=== PATIENT | female | born 1960 | race Hispanic/Latino ===

== ENCOUNTER 2020-11-19 09:51 | Inpatient (IN) | payer SELFPAY ==
[2020-11-19] MEDS ORDERED: ACETAMINOPHEN 500 MG TAB PO STA (10:10)
--- NOTE | 2020-11-19 10:11 | Event Note ---
ED Screening Note Date of service: 11/19/20 Time: 10:10 ED Screening Note: Patient complains of chest pain, shortness of breath, body aches and chills and feeling bad x3 days Recently returned from [place] few days ago, states 6 to 7-hour flight Denies swelling in her legs Mild tachycardia noted with a fever of 103 This initial assessment/diagnostic orders/clinical plan/treatment(s) is/are subject to change based on patients health status, clinical progression and re- assessment by fellow clinical providers in the ED. Further treatment and workup at subsequent clinical providers discretion. Patient/guardian urged not to elope from the ED as their condition may be serious if not clinically assessed and managed. Initial orders include: Tylenol Labs Chest x-ray
--- NOTE | 2020-11-19 10:42 | XRay Report ---
CHEST 2 VIEWS INDICATION / CLINICAL INFORMATION: chest pain, SOB, fever. COMPARISON: None available. FINDINGS: SUPPORT DEVICES: None. HEART / MEDIASTINUM: No significant abnormality. LUNGS / PLEURA: No focal consolidation pleural effusion. 4 mm nodule in the right midlung may represe nt granuloma No pneumothorax. ADDITIONAL FINDINGS: No significant additional findings. IMPRESSION: 1. Possible 4 mm nodule/granuloma right midlung. No priors available for comparison. A follow-up ches t x-ray could be performed. Signer Name: Shawn Doherty MD Signed: 11/19/2020 10:37 AM Workstation Name: [id number]
[2020-11-19 11:59] LABS: Basophils % (Auto) 0.3 % (0.0-1.8); Eosinophils % (Auto) 0.1 % (0.0-4.3); Hematocrit 35.2 % (30.3-42.9); Hemoglobin 12.1 gm/dl (10.1-14.3); Lymphocytes # (Auto) 1.3 K/mm3 (1.2-5.4); Lymphocytes % (Auto) 8.8 % (13.4-35.0); Mean Corpuscular HGB Conc 34 % (30-34); Mean Corpuscular Volume 90 fl (79-97); Monocytes # (Auto) 1.4 K/mm3 (0.0-0.8); Monocytes % (Auto) 9.6 % (0.0-7.3); Platelet Count 350 K/mm3 (140-440); Red Blood Count 3.91 M/mm3 (3.65-5.03); Red Cell Distribution Width 14.2 % (13.2-15.2)
[2020-11-19 12:22] LABS: Alanine Aminotransferase 30 units/L (7-56); BUN/Creatinine Ratio 11; Blood Urea Nitrogen 9 mg/dL (7-17); Calcium 8.5 mg/dL (8.4-10.2); Hemolysis Index 12
[2020-11-19] MEDS ORDERED: MORPHINE 4 MG/1 ML INJ IV ONE (12:25)
[2020-11-19] MEDS ORDERED: cefTRIAXone/NS 2 GM/100 ML 2 GM/100 ML BAG IV ONE (12:25)
[2020-11-19] MEDS ORDERED: SODIUM CHLORIDE 0.9% 100 ML IVPB IV STA (12:27)
[2020-11-19] MEDS ORDERED: VANCOMYCIN 1,250 MG in SODIUM CHLORIDE 0.9% 250ML 250 ML IV ONE (13:25)
--- NOTE | 2020-11-19 14:31 | Emergency Department Report ---
ED General Adult HPI - General Chief complaint: Fever Stated complaint: BODY PAIN/FEET/HAND NUMBNESS PUI?: Yes Time Seen by Provider: 11/19/20 10:08 Source: patient, RN notes reviewed Mode of arrival: Ambulatory Limitations: No Limitations - History of Present Illness Initial comments: During the entire history and physical examination, I had on complete personal protective equipment. The patient is a 60-year-old female. The patient was evaluated in the emergency department for symptoms described in the history of present illness. He/she was evaluated in the context of the global COVID-19 pandemic, which necessitated consideration that the patient might be at risk for infection with the virus that causes COVID-19. In stitutional protocols and algorithms that pertain to the evaluation of patients at risk for COVID-19 are in a state of rapid change based on information released by regulatory bodies including the CDC and federal and state organizations. These policies and algorithms were followed during the patient's care in the emergency department. Please note that these policies, procedures and recommendations changed on a rapid basis. The patient has a history of methamphetamine use, and reports that she smokes it. She states that she does not inject IV drugs. The patient presents to the ER today with a complaint of nontraumatic occipital and midline cervical neck pain, numbness in her fingertips, and toes, abdominal pain, in the right lower quadrant, shortness of breath, fevers, chills. Denies loss of taste and smell. Denies dysuria. Denies severe headache, and sore throat. Denies neck stiffness. Denies focal extremity weakness. She told the physician urology physician assistant that screened her that she was having shortness of breath, and a recent 6-hour flight. -: Gradual, days(s) Location: neck, abdomen, left, right, upper extremity, lower extremity Radiation: extremity Severity scale (0 -10): 10 Quality: aching Consistency: constant Improves with: rest Worsens with: movement - Related Data Allergies Allergy/AdvReac Type Severity Reaction Status Date / Time codeine Allergy Unknown Verified 11/19/20 10:05 ED Review of Systems ROS: Stated complaint: BODY PAIN/FEET/HAND NUMBNESS Other details as noted in HPI Constitutional: fever, malaise, weakness Eyes: denies: eye discharge ENT: denies: epistaxis Respiratory: shortness of breath. denies: cough Cardiovascular: denies: chest pain Gastrointestinal: abdominal pain Genitourinary: denies: dysuria Musculoskeletal: arthralgia, myalgia Neurological: weakness, numbness, paresthesias Psychiatric: anxiety ED Past Medical Hx - Past Medical History Previous Medical History?: No - Surgical History Past Surgical History?: No - Social History Smoking Status: Unknown if ever smoked ED Physical Exam - General Limitations: No Limitations General appearance: alert, in no apparent distress - Head Head exam: Present: atraumatic, normocephalic - Eye Eye exam: Present: normal appearance, EOMI. Absent: nystagmus - ENT ENT exam: Present: normal orophraynx, normal external ear exam, other (The patient is edentulous) - Neck Neck exam: Present: normal inspection, full ROM. Absent: tenderness, meningismus - Respiratory Respiratory exam: Present: other (Pulmonary auscultation not performed secondary to lack of disposable stethoscope). Absent: stridor - Cardiovascular Cardiovascular Exam: Present: normal rhythm, tachycardia (Tachycardia noted on traffic monitor specialist), other (Tachycardia noted on traffic monitor specialist) - GI/Abdominal GI/Abdominal exam: Present: soft, tenderness, guarding, normal bowel sounds. Absent: distended, rigid, pulsatile mass - Extremities Exam Extremities exam: Present: normal inspection, full ROM, other (2+ pulses noted in the bilateral upper and lower extremities. There is no palpable cord. negative Homans sign. Muscular compartments are soft. The pelvis is stable.). Absent: pedal edema, calf tenderness - Back Exam Back exam: Present: normal inspection, paraspinal tenderness. Absent: t enderness, CVA tenderness (R), CVA tenderness (L) - Neurological Exam Neurological exam: Present: alert, other (No facial droop. Tongue midline. Extraocular movements intact bilaterally. Facial sensation intact to light touch in V1, V2, V3 distribution bilaterally. 5 and a 5 strength in 4 extremities. Sensation intact to light touch in 4 extremities.) - Psychiatric Psychiatric exam: Present: anxious - Skin Skin exam: Present: warm, dry, intact, normal color. Absent: rash ED Course Vital Signs 11/19/20 11/19/20 11/19/20 10:08 14:29 14:30 Temperature 103.0 F H Pulse Rate 105 H 71 73 Respiratory 24 16 19 Rate Blood Pressure 149/72 Blood Pressure [Left] O2 Sat by Pulse 99 Oximetry 11/19/20 11/19/20 11/19/20 14:33 14:46 15:00 Temperature 97.9 F Pulse Rate 69 71 68 Respiratory 18 17 14 Rate Blood Pressure 102/56 111/51 Blood Pressure 105/52 [Left] O2 Sat by Pulse 95 80 L 100 Oximetry - Reevaluation(s) Reevaluation #1: 11/19/20 14:30 Differential diagnosis, including but not limited to: Bacteremia, viremia, pneumonia, pulmonary embolism, appendicitis, infected renal stone, renal abscess, cervical epidural abscess COVID-19 Assessment and plan: 60-year-old female meeting sepsis/SIRS criteria, by merit of leukocytosis, tachycardia, and fever. She complains of neck pain, with tingling in her fingertips and toes, without midline spinal step-offs or tenderness, without acute neurologic deficits, also with a complaint of right lower quadrant pain, and articulated to the physician urology physician assistant that screened her that she had chest pain and shortness of breath, in the context of a recent trip to [place]. The patient is also a methamphetamine user. Sepsis protocol initiated. Given methamphetamine use, presence of fever and tachycardia, Neck pain, neurologic symptoms, MRI cervical spine is obtained to exclude epidural abscess. Given fever, tachycardia, right lower quadrant pain, complaint of chest pain and shortness of breath, CT scan chest, abdomen pelvis is obtained. Patient is medicated empirically with vancomycin, and ceftriaxone. She is placed on isolation precautions, reassess after imaging has resulted. Have discussed this plan of care with the patient. She is amenable to the afo rementioned. We will likely admit this patient. 11/19/20 14:31 11/19/20 14:32 Reevaluation #2: 11/19/20 15:16 MRI cervical spine negative for acute surgical findings. CT scan neck, chest, abdomen, pelvis negative for acute findings that would require emergent surgical intervention, however, CT scan abdomen pelvis demonstrates right-sided pyelonephritis, corroborating with patient's urinalysis. CT scan chest has shown coronary artery calcifications, as well as a granuloma, but otherwise no acute findings. Patient is moving 4 extremities and remains neurologically intact. Patient meets criteria for admission hospitalization secondary to sepsis, secondary to pyelonephritis. Hospital physician, Dr. Monet, to admit for the aforementioned. ED Medical Decision Making - Lab Data Result diagrams: 11/19/20 11:14 11/19/20 11:14 Vital Signs 11/19/20 10:08 Temperature 103.0 F H Pulse Rate 105 H Respiratory 24 Rate Blood Pressure 149/72 O2 Sat by Pulse 99 Oximetry Lab Results 11/19/20 11/19/20 11/19/20 Range/Units 11:14 11:14 11:14 WBC 14.7 H (4.5-11.0) K/mm3 RBC 3.91 (3.65-5.03) M/mm3 Hgb 12.1 (10.1-14.3) gm/dl Hct 35.2 (30.3-42.9) % MCV 90 (79-97) fl MCH 31 (28-32) pg MCHC 34 (30-34) % RDW 14.2 (13.2-15.2) % Plt Count 350 (140-440) K/mm3 Lymph % (Auto) 8.8 L (13.4-35.0) % Divide % (Auto) 9.6 H (0.0-7.3) % Eos % (Auto) 0.1 (0.0-4.3) % Baso % (Auto) 0.3 (0.0-1.8) % Lymph # (Auto) 1.3 (1.2-5.4) K/mm3 Divide # (Auto) 1.4 H (0.0-0.8) K/mm3 Eos # (Auto) 0.0 (0.0-0.4) K/mm3 Baso # (Auto) 0.0 (0.0-0.1) K/mm3 Seg Neutrophils % 81.2 H (40.0-70.0) % Seg Neutrophils # 11.9 H (1.8-7.7) K/mm3 Sodium 136 L (137-145) mmol/L Potassium 4.0 (3.6-5.0) mmol/L Chloride 99.8 (98-107) mmol/L Carbon Dioxide 24 (22-30) mmol/L Anion Gap 16 mmol/L BUN 9 (7-17) mg/dL Creatinine 0.8 (0.6-1.2) mg/dL Estimated GFR > 60 ml/min BUN/Creatinine Ratio 11 % Glucose 97 (65-100) mg/dL Lactic Acid 0.60 L (0.7-2.0) mmol/L Calcium 8.5 (8.4-10.2) mg/dL Magnesium (1.7-2.3) mg/dL Total Bilirubin 0.40 (0.1-1.2) mg/dL AST 37 (5-40) units/L ALT 30 (7-56) units/L Alkaline Phosphatase 140 H (35-129) units/L Total Creatine Kinase (30-135) units/L Troponin T (0.00-0.029) ng/mL Albumin 4.0 (3.9-5) g/dL 11/19/20 11/19/20 Range/Units 11:14 11:14 WBC (4.5-11.0) K/mm3 RBC (3.65-5.03) M/mm3 Hgb (10.1-14.3) gm/dl Hct (30.3-42.9) % MCV (79-97) fl MCH (28-32) pg MCHC (30-34) % RDW (13.2-15.2) % Plt Count (140-440) K/mm3 Lymph % (Auto) (13.4-35.0) % Divide % (Auto) (0.0-7.3) % Eos % (Auto) (0.0-4.3) % Baso % (Auto) (0.0-1.8) % Lymph # (Auto) (1.2-5.4) K/mm3 Divide # (Auto) (0.0-0.8) K/mm3 Eos # (Auto) (0.0-0.4) K/mm3 Baso # (Auto) (0.0-0.1) K/mm3 Seg Neutrophils % (40.0-70.0) % Seg Neutrophils # (1.8-7.7) K/mm3 Sodium (137-145) mmol/L Potassium (3.6-5.0) mmol/L Chloride (98-107) mmol/L Carbon Dioxide (22-30) mmol/L Anion Gap mmol/L BUN (7-17) mg/dL Creatinine (0.6-1.2) mg/dL Estimated GFR ml/min BUN/Creatinine Ratio % Glucose (65-100) mg/dL Lactic Acid (0.7-2.0) mmol/L Calcium (8.4-10.2) mg/dL Magnesium 1.70 (1.7-2.3) mg/dL Total Bilirubin (0.1-1.2) mg/dL AST (5-40) units/L ALT (7-56) units/L Alkaline Phosphatase (35-129) units/L Total Creatine Kinase 82 (30-135) units/L Troponin T < 0.010 (0.00-0.029) ng/mL Albumin (3.9-5) g/dL - EKG Data -: EKG Interpreted by Sd EKG shows normal: sinus rhythm Rate: normal - EKG Data 11/19/20 14:35 EKG is interpreted at 14: 26 Sinus rhythm, 68 bpm. Normal axis, left ventricular hypertrophy, QTC 468 ms. Motion artifact. Abnormal EKG. Not a STEMI. - Radiology Data Radiology results: pending, report reviewed, image reviewed CHEST 2 VIEWS INDICATION / CLINICAL INFORMATION: chest pain, SOB, fever. COMPARISON: None available. FINDINGS: SUPPORT DEVICES: None. HEART / MEDIASTINUM: No significant abnormality. LUNGS / PLEURA: No focal consolidation pleural effusion. 4 mm nodule in the right midlung may represent granuloma No pneumothorax. ADDITIONAL FINDINGS: No significant additional findings. IMPRESSION: 1. Possible 4 mm nodule/granuloma right midlung. No priors available for comparison. A follow-up chest x-ray could be performed. Signer Name: Shawn Doherty MD Signed: 11/19/2020 9:37 AM Workstation Name: [id number] MRI CERVICAL SPINE WITHOUT AND WITH CONTRAST INDICATION / CLINICAL INFORMATION: neck pain fever, sepsis. TECHNIQUE: Multisequence, multiplanar images of the cervical spine were obtained. Contrast dose report: Clariscan: 15 mL administered intravenously. COMPARISON: None available. FINDINGS: POSTOPERATIVE CHANGES: none CRANIOCERVICAL JUNCTION:No significant abnormality. ALIGNMENT: Loss the normal cervical lordosis is noted. No additional abnormalities of alignment are identified. VERTEBRAE:No suspicious areas of abnormal bone marrow signal intensity are identified. CERVICAL INTERVERTEBRAL DISCS: Disc desiccation is noted at the C4-5 and C5-C6 levels. VISUALIZED SPINAL CORD: No intrinsic cord lesions are identified. There is no indication of cord compression. [id number] ANALYSIS: C2-3: No significant disc abnormality, spinal canal stenosis, or neural foraminal stenosis. C3-4: No significant disc abnormality, spinal canal stenosis, or neural foraminal stenosis. C4-5: Uncovertebral arthropathy contributes to moderate left-sided and mild right- sided neuroforaminal stenosis. Central spinal canal is adequate in size. C5-6: Disc desiccation is noted. Posterior disc osteophyte complex flattens the thecal sac slightly. Mild bilateral neuroforaminal narrowing is observed. C6-7: Small left paracentral and lateral recess disc protrusion produces mild thecal sac deformity. Central spinal canal and neuroforamina are adequate in size. C7-T1: No significant disc abnormality, spinal canal stenosis, or neural foraminal stenosis. PARASPINAL SOFT TISSUES: No significant abnormality. Contrast administration: Following administration of intravenous contrast material enhancement of normal cervical epidural venous structures is observed. No areas of abnormal contrast enhancement are identified. IMPRESSION: 1. Degenerative changes at C4-5, C5-6 and C6-7 levels as described above.. 2. No indication of discitis, osteomyelitis or epidural abscess in this patient with febrile illness and neck pain. Signer Name: Woody Plascencia MD Signed: 11/19/2020 1:31 PM Workstation Name: [id number] CT ABDOMEN AND PELVIS WITH CONTRAST INDICATION / CLINICAL INFORMATION: RLQ pain fever septic' OMNI 350 100 ML. TECHNIQUE: Axial CT images were obtained through the abdomen and pelvis after IV contrast. All CT scans at this location are performed using CT dose reduction for ALARA by means of automated exposure control. COMPARISON: None available. FINDINGS: LOWER CHEST: No significant abnormality. LIVER: No significant abnormality. GALLBLADDER: Tiny calcified ga llstones without gallbladder wall thickening or inflammation. BILE DUCTS: No significant abnormality. PANCREAS: No significant abnormality. SPLEEN: Tiny calcified granulomas but no significant abnormality. ADRENALS: No significant abnormality. RIGHT KIDNEY / URETER: Patchy areas of decreased enhancement characteristic of pyelonephritis. No abscess. No ureteral stone or hydronephrosis. LEFT KIDNEY / URETER: No significant abnormality. STOMACH / SMALL BOWEL: No significant abnormality. COLON: No significant abnormality. APPENDIX: No significant abnormality. PERITONEUM: No free fluid. No free air. No fluid collection. LYMPH NODES: No significant adenopathy. AORTA / ARTERIES: Mild atherosclerotic calcification without acute abnormality. IVC / VEINS: No significant abnormality. URINARY BLADDER: No significant abnormality. REPRODUCTIVE ORGANS: No significant abnormality. ADDITIONAL FINDINGS: None. SKELETAL SYSTEM: No significant abnormality. IMPRESSION: 1. Right renal pyelonephritis without abscess. 2. Cholelithiasis without inflammation. Signer Name: Keila Velázquez MD Signed: 11/19/2020 1:41 PM Workstation Name: [id number] CTA CHEST WITH IV CONTRAST INDICATION: Fever and tachycardia, recent travel. TECHNIQUE: Axial CT images were obtained through the chest after injection of 100 mL Omnipaque 350 IV contrast. 3 plane MIP reconstructions were produced. All CT scans at this location are performed using CT dose reduction for ALARA by means of automated exposure control. COMPARISON: None available. FINDINGS: Pulmonary Arteries: No pulmonary emboli. Lungs: There are multiple calcified granulomata in the right lower lobe. Trachea and Bronchi: No significant abnorm ality. Heart and Pericardium: Mild coronary atherosclerotic calcifications. Vasculature: No significant abnormality. Lymphatics: No lymphadenopathy. Additional Findings: None. Upper Abdomen: No acute findings. Skeletal Structures: No acute findings or aggressive bone lesions. IMPRESSION: 1. No CT evidence for pulmonary embolism. 2. No acute findings. Signer Name: Flaco Guo MD Signed: 11/19/2020 1:41 PM Workstation Name: [id number] CT neck w con INDICATION / CLINICAL INFORMATION: 60 years Female; OMNI 350 100 ML neck pain fever sepsis. TECHNIQUE: Contiguous thin cut axial images obtained through the neck following IV contrast. Sagittal and coronal reconstructions performed by the technologist. All CT scans at this location are performed using CT dose reduction for ALARA by means of automated exposure control. COMPARISON: The study is compared with the accompanying stat MRI cervical spine performed at 2:21 PM Central standard time. FINDINGS: MUCOSAL SPACE: No definitive focal lesions are seen involving the oral pharyngeal soft tissues. The epiglottis is appropriate in size. The laryngeal structures appear fairly symmetric. The visualized upper esophagus is grossly unremarkable. LYMPH NODES: There are a few scattered small cervical lymph nodes which are nonspecific though likely reactive given the size at. SALIVARY GLANDS: The visualized parotid and submandibular glands appear to demonstrate symmetric attenuation without calcification or focal lesions. THYROID GLAND: Unremarkable. PARANASAL SINUSES: Visualized paranasal sinuses and mastoid air cells are essentially clear. SPINE: There is notable left facet joint arthropathy at C2-3 with notable a cystic changes at. The findings correlate with the accompanying MRI demonstrating a small effusion. No fluid collections are seen within the adjacent soft tissues at. No prevertebral soft tissue fluid collections are identified. There are more chronic appearing facet joint degenerative changes involving multiple cervical levels on the right. VASCULAR STRUCTURES: Vascular structures are grossly normal in appearance. IMPRESSION: 1. There is notable left facet joint arthropathy at C2-3 which correlates with the covering stat MRI as described. 2. There is otherwise no clear CT evidence of significant inflammatory changes or fluid collections involving soft tissues of the neck Signer Name: Blair Nielsen MD Signed: 11/19/2020 1:48 PM Workstation Name: [id number] Critical care attestation.: If time is entered above; I have spent that time in minutes in the direct care of this critically ill patient, excluding procedure time. ED Disposition Clinical Impression: Methamphetamine abuse, Acute neck pain, Sepsis, Acute abdominal pain in right lower quadrant, Acute dyspnea, Suspected 2019 novel coronavirus infection, Acute chest pain, Pyelonephritis, Coronary artery calcification, Pulmonary granuloma, Cervical spine disease Disposition: OP ADMIT IP TO THIS HOSP Is pt being admited?: Yes Does the pt Need Aspirin: Yes Condition: Good Instructions: Chest Pain (ED) Referrals: PRIMARY CARE, [Primary Care Provider] - 3-5 Days Heart Score - HEART Score History: Slightly suspicious EKG: Non-specific Age: 45-65 Risk factors: 1-2 risk factors Troponin: < normal limit HEART Score: 3 - EKG Read Time Time EKG Completed: 14:23 EKG Read Time: 14:26 - Critical Actions Critical Actions: 0-3 pts:0.9-1.7%risk of adverse cardiac event.Candidate for discharge
--- NOTE | 2020-11-19 14:35 | Magnetic Resonance Report ---
MRI CERVICAL SPINE WITHOUT AND WITH CONTRAST INDICATION / CLINICAL INFORMATION: neck pain fever, sepsis. TECHNIQUE: Multisequence, multiplanar images of the cervical spine were obtained. Contrast dose report: Clariscan: 15 mL administered intravenously. COMPARISON: None available. FINDINGS: POSTOPERATIVE CHANGES: none CRANIOCERVICAL JUNCTION:No significant abnormality. ALIGNMENT: Loss the normal cervical lordosis is noted. No additional abnormalities of alignment are i dentified. VERTEBRAE:No suspicious areas of abnormal bone marrow signal intensity are identified. CERVICAL INTERVERTEBRAL DISCS: Disc desiccation is noted at the C4-5 and C5-C6 levels. VISUALIZED SPINAL CORD: No intrinsic cord lesions are identified. There is no indication of cord comp ression. [id number] ANALYSIS: C2-3: No significant disc abnormality, spinal canal stenosis, or neural foraminal stenosis. C3-4: No significant disc abnormality, spinal canal stenosis, or neural foraminal stenosis. C4-5: Uncovertebral arthropathy contributes to moderate left-sided and mild right-sided neuroforamina l stenosis. Central spinal canal is adequate in size. C5-6: Disc desiccation is noted. Posterior disc osteophyte complex flattens the thecal sac slightly. Mild bilateral neuroforaminal narrowing is observed. C6-7: Small left paracentral and lateral recess disc protrusion produces mild thecal sac deformity. C entral spinal canal and neuroforamina are adequate in size. C7-T1: No significant disc abnormality, spinal canal stenosis, or neural foraminal stenosis. PARASPINAL SOFT TISSUES: No significant abnormality. Contrast administration: Following administration of intravenous contrast material enhancement of nor mal cervical epidural venous structures is observed. No areas of abnormal contrast enhancement are id entified. IMPRESSION: 1. Degenerative changes at C4-5, C5-6 and C6-7 levels as described above.. 2. No indication of discitis, osteomyelitis or epidural abscess in this patient with febrile illness and neck pain. Signer Name: Woody Plascencia MD Signed: 11/19/2020 2:31 PM Workstation Name: [id number]
--- NOTE | 2020-11-19 14:45 | Cat Scan Report ---
CT ABDOMEN AND PELVIS WITH CONTRAST INDICATION / CLINICAL INFORMATION: RLQ pain fever septic' OMNI 350 100 ML. TECHNIQUE: Axial CT images were obtained through the abdomen and pelvis after IV contrast. All CT sc ans at this location are performed using CT dose reduction for ALARA by means of automated exposure c ontrol. COMPARISON: None available. FINDINGS: LOWER CHEST: No significant abnormality. LIVER: No significant abnormality. GALLBLADDER: Tiny calcified gallstones without gallbladder wall thickening or inflammation. BILE DUCTS: No significant abnormality. PANCREAS: No significant abnormality. SPLEEN: Tiny calcified granulomas but no significant abnormality. ADRENALS: No significant abnormality. RIGHT KIDNEY / URETER: Patchy areas of decreased enhancement characteristic of pyelonephritis. No abs cess. No ureteral stone or hydronephrosis. LEFT KIDNEY / URETER: No significant abnormality. STOMACH / SMALL BOWEL: No significant abnormality. COLON: No significant abnormality. APPENDIX: No significant abnormality. PERITONEUM: No free fluid. No free air. No fluid collection. LYMPH NODES: No significant adenopathy. AORTA / ARTERIES: Mild atherosclerotic calcification without acute abnormality. IVC / VEINS: No significant abnormality. URINARY BLADDER: No significant abnormality. REPRODUCTIVE ORGANS: No significant abnormality. ADDITIONAL FINDINGS: None. SKELETAL SYSTEM: No significant abnormality. IMPRESSION: 1. Right renal pyelonephritis without abscess. 2. Cholelithiasis without inflammation. Signer Name: Keila Velázquez MD Signed: 11/19/2020 2:41 PM Workstation Name: [id number]
--- NOTE | 2020-11-19 14:46 | Cat Scan Report ---
CTA CHEST WITH IV CONTRAST INDICATION: Fever and tachycardia, recent travel. TECHNIQUE: Axial CT images were obtained through the chest after injection of 100 mL Omnipaque 350 IV contrast. 3 plane MIP reconstructions were produced. All CT scans at this location are performed using CT dose reduction for ALARA by means of automated exposure control. COMPARISON: None available. FINDINGS: Pulmonary Arteries: No pulmonary emboli. Lungs: There are multiple calcified granulomata in the right lower lobe. Trachea and Bronchi: No significant abnormality. Heart and Pericardium: Mild coronary atherosclerotic calcifications. Vasculature: No significant abnormality. Lymphatics: No lymphadenopathy. Additional Findings: None. Upper Abdomen: No acute findings. Skeletal Structures: No acute findings or aggressive bone lesions. IMPRESSION: 1. No CT evidence for pulmonary embolism. 2. No acute findings. Signer Name: Flaco Guo MD Signed: 11/19/2020 2:41 PM Workstation Name: [id number]
--- NOTE | 2020-11-19 14:53 | Cat Scan Report ---
CT neck w con INDICATION / CLINICAL INFORMATION: 60 years Female; OMNI 350 100 ML neck pain fever sepsis. TECHNIQUE: Contiguous thin cut axial images obtained through the neck following IV contrast. Sagittal and roberson l reconstructions performed by the technologist. All CT scans at this location are performed using CT dose reduction for ALARA by means of automated exposure control. COMPARISON: The study is compared with the accompanying stat MRI cervical spine performed at 2:21 PM [facility]. FINDINGS: MUCOSAL SPACE: No definitive focal lesions are seen involving the oral pharyngeal soft tissues. The e piglottis is appropriate in size. The laryngeal structures appear fairly symmetric. The visualized up per esophagus is grossly unremarkable. LYMPH NODES: There are a few scattered small cervical lymph nodes which are nonspecific though likely reactive given the size at. SALIVARY GLANDS: The visualized parotid and submandibular glands appear to demonstrate symmetric atte nuation without calcification or focal lesions. THYROID GLAND: Unremarkable. PARANASAL SINUSES: Visualized paranasal sinuses and mastoid air cells are essentially clear. SPINE: There is notable left facet joint arthropathy at C2-3 with notable a cystic changes at. The fi ndings correlate with the accompanying MRI demonstrating a small effusion. No fluid collections are s een within the adjacent soft tissues at. No prevertebral soft tissue fluid collections are identified . There are more chronic appearing facet joint degenerative changes involving multiple cervical level s on the right. VASCULAR STRUCTURES: Vascular structures are grossly normal in appearance. IMPRESSION: 1. There is notable left facet joint arthropathy at C2-3 which correlates with the covering stat MRI as described. 2. There is otherwise no clear CT evidence of significant inflammatory changes or fluid collections i nvolving soft tissues of the neck Signer Name: Blair Nielsen MD Signed: 11/19/2020 2:48 PM Workstation Name: [id number]
[2020-11-19 14:54] LABS: Bacteria,Urine 2+ /HPF (Negative); Bilirubin,Urine NEG (Negative); Blood,Urine MOD (Negative); Color,Urine Straw (Yellow); Mucus,Urine FEW /HPF; Protein,Urine <15 mg/dL mg/dL (Negative); Urobilinogen,Urine < 2.0 mg/dL (<2.0)
[2020-11-19] MEDS ORDERED: ASPIRIN 81 MG TAB CHEW PO ONE (15:04)
[2020-11-19] MEDS ORDERED: ACETAMINOPHEN 325 MG TAB PO PRN ×2 (15:25→15:27)
[2020-11-19] MEDS ORDERED: HYDROmorphone 1 MG/1 ML INJ IV PRN ×2 (15:25→15:27)
[2020-11-19] MEDS ORDERED: ALBUTEROL 2.5 MG/3 ML NEBU IH PRN (15:25)
[2020-11-19] MEDS ORDERED: oxyCODONE /ACETAMINOPHEN 5-325MG TAB PO PRN (15:25)
[2020-11-19] MEDS ORDERED: ONDANSETRON 4 MG/2 ML INJ IV PRN (15:25)
--- NOTE | 2020-11-19 15:29 | History and Physical Report ---
History of Present Illness History of present illness: 60 YO Female with Methamphetamine Dependence presents to ED for evaluation. The patient has a history of methamphetamine use, and reports that she smokes it. She states that she does not inject IV drugs. The patient presents to the ER today with a complaint of nontraumatic occipital and midline cervical neck pain, numbness in her fingertips, and toes, abdominal pain, in the right lower quadrant, shortness of breath, fevers, chills. Denies loss of taste and smell. Denies dysuria. Denies severe headache, and sore throat. Denies neck stiffness. Denies focal extremity weakness. She told the physician assistant fitness manager that screened her that she was having shortness of breath, and a r ecent 6-hour flight. -: Gradual, days(s) Location: neck, abdomen, left, right, upper extremity, lower extremity Radiation: extremity Severity scale (0 -10): 10 Quality: aching Consistency: constant Improves with: rest Worsens with: movement - Related Data Allergies Allergy/AdvReac Type Severity Reaction Status Date / Time codeine Allergy Unknown Verified 11/19/20 10:05 ED Review of Systems ROS: Stated complaint: BODY PAIN/FEET/HAND NUMBNESS Other details as noted in HPI Constitutional: fever, malaise, weakness Eyes: denies: eye discharge ENT: denies: epistaxis Respiratory: shortness of breath. denies: cough Cardiovascular: denies: chest pain Gastrointestinal: abdominal pain Genitourinary: denies: dysuria Musculoskeletal: arthralgia, myalgia Neurological: weakness, numbness, paresthesias Psychiatric: anxiety ED Past Medical Hx - Past Medical History Previous Medical History?: No - Surgical History Past Surgical History?: No - Social History Smoking Status: Unknown if ever smoked ED Physical Exam - General Limitations: No Limitations General appearance: alert, in no apparent distress - Head Head exam: Present: atraumatic, normocephalic - Eye Eye exam: Present: normal appearance, EOMI. Absent: nystagmus - ENT ENT exam: Present: normal orophraynx, normal external ear exam, other (The patient is edentulous) - Neck Neck exam: Present: normal inspection, full ROM. Absent: tenderness, meningismus - Respiratory Respiratory exam: Present: other (Pulmonary auscultation not performed secondary to lack of disposable stethoscope). Absent: stridor - Cardiovascular Cardiovascular Exam: Present: normal rhythm, tachycardia (Tachycardia noted on youth nutritional monitor), other (Tachycardia noted on youth nutritional monitor) - GI/Abdominal GI/Abdominal exam: Present: soft, tenderness, guarding, normal bowel sounds. Absent: distended, rigid, pulsatile mass - Extremities Exam Extremities exam: Present: normal inspection, full ROM, other (2+ pulses noted in the bilateral upper and lower extremities. There is no palpable cord. negative Homans sign. Muscular compartments are soft. The pelvis is stable.). Absent: pedal edema, calf tenderness - Back Exam Back exam: Present: normal inspection, paraspinal tenderness. Absent: tenderness, CVA tenderness (R), CVA tenderness (L) - Neurological Exam Neurological exam: Present: alert, other (No facial droop. Tongue midline. Extraocular movements intact bilaterally. Facial sensation intact to light touch in V1, V2, V3 distribution bilaterally. 5 and a 5 strength in 4 extr emities. Sensation intact to light touch in 4 extremities.) - Psychiatric Psychiatric exam: Present: anxious - Skin Skin exam: Present: warm, dry, intact, normal color. Absent: rash ED Course Vital Signs 11/19/20 11/19/20 11/19/20 10:08 14:29 14:30 Temperature 103.0 F H Pulse Rate 105 H 71 73 Respiratory 24 16 19 Rate Blood Pressure 149/72 Blood Pressure [Left] O2 Sat by Pulse 99 Oximetry 11/19/20 11/19/20 11/19/20 14:33 14:46 15:00 Temperature 97.9 F Pulse Rate 69 71 68 Respiratory 18 17 14 Rate Blood Pressure 102/56 111/51 Blood Pressure 105/52 [Left] O2 Sat by Pulse 95 80 L 100 Oximetry - Reevaluation(s) Reevaluation #1: 11/19/20 14:30 Differential diagnosis, including but not limited to: Bacteremia, viremia, pneumonia, pulmonary embolism, appendicitis, infected renal stone, renal abscess, cervical epidural abscess COVID-19 Assessment and plan: 60-year-old female meeting sepsis/SIRS criteria, by merit of leukocytosis, tachycardia, and fever. She complains of neck pain, with tingling in her fingertips and toes, without midline spinal step-offs or tenderness, without acute neurologic deficits, also with a complaint of right lower quadrant pain, and articulated to the physician assistant fitness manager that screened her that she had chest pain and shortness of breath, in the context of a recent trip to [place]. The patient is also a methamphetamine user. Sepsis protocol initiated. Given methamphetamine use, presence of fever and tachycardia, Neck pain, neurologic symptoms, MRI cervical spine is obtained to exclude epidural abscess. Given fever, tachycardia, right lower quadrant pain, complaint of chest pain and shortness of breath, CT scan chest, abdomen pelvis is obtained. Patient is medicated empirically with vancomycin, and ceftriaxone. She is placed on isolation precautions, reassess after imaging has resulted. Have discussed this plan of care with the patient. She is amenable to the aforementioned. We will likely admit this patient. Medications and Allergies Allergies Allergy/AdvReac Type Severity Reaction Status Date / Time codeine Allergy Unknown Verified 11/19/20 10:05 Active Meds: Active Medications Acetaminophen (Acetaminophen 325 Mg Tab) 650 mg PO Q4H PRN PRN Reason: Pain MILD(1-3)/Fever >100.5/PRITCHETT Albuterol (Albuterol 2.5 Mg/3 Ml Nebu) 2.5 mg IH Q4HRT PRN PRN Reason: Shortness Of Breath Hydromorphone HCl (Hydromorphone 1 Mg/1 Ml Inj) 0.5 mg IV Q12H PRN PRN Reason: Pain , Severe (7-10) Ondansetron HCl (Ondansetron 4 Mg/2 Ml Inj) 4 mg IV Q8H PRN PRN Reason: Nausea And Vomiting Oxycodone/Acetaminophen (Oxycodone /Acetaminophen 5-325mg Tab) 1 tab PO Q12H PRN PRN Reason: Pain, Moderate (4-6) Sodium Chloride (Sodium Chloride 0.9% 10 Ml Flush Syringe) 10 ml IV BID JUD Sodium Chloride (Sodium Chloride 0.9% 10 Ml Flush Syringe) 10 ml IV PRN PRN PRN Reason: LINE FLUSH Exam - Constitutional Vitals: Temp Pulse Resp BP Pulse Ox 97.9 F 68 14 111/51 100 11/19/20 14:33 11/19/20 15:00 11/19/20 15:00 11/19/20 15:00 11/19/20 15:00 HEART Score - HEART Score EKG: Non-specific Age: 45-65 Risk factors: 1-2 risk factors Troponin: Troponin T < 0.010 ng/mL (0.00-0.029) 11/19/20 11:14 Troponin: < normal limit - Critical Actions Critical Actions: 0-3 pts:0.9-1.7%risk of adverse cardiac event.Candidate for discharge Results - Labs CBC & Chem 7: 11/19/20 11:14 11/19/20 11:14 Labs: Abnormal lab results 11/19/20 11/19/20 11/19/20 Range/Units 11:14 11:14 11:14 WBC 14.7 H (4.5-11.0) K/mm3 Lymph % (Auto) 8.8 L (13.4-35.0) % [place] % (Auto) 9.6 H (0.0-7.3) % [place] # (Auto) 1.4 H (0.0-0.8) K/mm3 Seg Neutrophils % 81.2 H (40.0-70.0) % Seg Neutrophils # 11.9 H (1.8-7.7) K/mm3 Sodium 136 L (137-145) mmol/L Lactic Acid 0.60 L (0.7-2.0) mmol/L Alkaline Phosphatase 140 H (35-129) units/L Urine WBC (Auto) (0.0-6.0) /HPF 11/19/20 Range/Units Unknown WBC (4.5-11.0) K/mm3 Lymph % (Auto) (13.4-35.0) % [place] % (Auto) (0.0-7.3) % [place] # (Auto) (0.0-0.8) K/mm3 Seg Neutrophils % (40.0-70.0) % Seg Neutrophils # (1.8-7.7) K/mm3 Sodium (137-145) mmol/L Lactic Acid (0.7-2.0) mmol/L Alkaline Phosphatase (35-129) units/L Urine WBC (Auto) 86.0 H (0.0-6.0) /HPF
[2020-11-19] MEDS ORDERED: SODIUM CHLORIDE 0.9% 1000 ML IV SOLN IV ONE (16:27)
--- NOTE | 2020-11-19 18:29 | Event Note ---
60 YO Female presents to ED for evaluation. Pt seen and evaluated in ED and found to have UTI as well as cervical neck pain secondary to radiculopathy. Pt treated with IVF resuscitation therapy as well as IV antibiotic therapy. Pt medically optimized and back to usual state of health. Pt discharged home and instructed to f/u pcp within 3 days for further care and evaluation. ED Physical Exam - General Limitations: No Limitations General appearance: alert, in no apparent distress - Head Head exam: Present: atraumatic, normocephalic - Eye Eye exam: Present: normal appearance, EOMI. Absent: nystagmus - ENT ENT exam: Present: normal orophraynx, normal external ear exam, other (The patient is edentulous) - Neck Neck exam: Present: normal inspection, full ROM. Absent: tenderness, meningismus - Respiratory Respiratory exam: Present: CTA Bilaterally, Normal chest wall expansion. Absent: stridor - Cardiovascular Cardiovascular Exam: Present: normal rhythm, no MRG (Tachycardia noted on general manager land department), - GI/Abdominal GI/Abdominal exam: Present: soft, nontender, normal bowel sounds. Absent: distended, rigid, pulsatile mass - Extremities Exam Extremities exam: Present: normal inspection, full ROM, other (2+ pulses noted in the bilateral upper and lower extremities. There is no palpable cord. negative Homans sign. Muscular compartments are soft. The pelvis is stable.). Absent: pedal edema, calf tenderness - Back Exam Back exam: Present: normal inspection, paraspinal tenderness. Absent: tenderness, CVA tenderness (R), CVA tenderness (L) - Neurological Exam Neurological exam: Present: alert, other (No facial droop. Tongue midline. Extraocular movements intact bilaterally. Facial sensation intact to light touch in V1, V2, V3 distribution bilaterally. 5 and a 5 strength in 4 extremities. Sensation intact to light touch in 4 extremities.) - Psychiatric Psychiatric exam: Present: anxious - Skin Skin exam: Present: warm, dry, intact, normal color. Absent: rash
[2020-11-19 19:43] VITALS: BP 123/60
[2020-11-20] MEDS ORDERED: cefTRIAXone/NS 1 GM/50 ML 1 GM/50 ML BAG IV SCH (12:00)
--- NOTE | 2020-11-21 09:40 | Electrocardiograph Report ---
[facility] Test Date: 2020-11-19 Test Time: 14:26:14 Pat Name: HERBIE BHAT Department: Room: [place] [address] Gender: F Programmer Business: GARY : 1960 Requested By: IRINA ROSALES Order Number: [id number] Reading MD: Christiano Paz Measurements Intervals [place] Rate: 68 P: 77 DC: 168 QRS: 58 QRSD: 109 T: 49 QT: 439 QTc: 468 Interpretive Statements Sinus rhythm No previous ECG available for comparison Electronically Signed On 11-21-2020 9:39:37 EDT by Christiano Paz
== END 2020-11-19 19:45 | disposition home or self-care (01) | DRG 872 ==
LOC: ED 09:51 → 3A 15:25
PROVIDERS: ADMIT Internal Medicine; ATTEND Internal Medicine
DX: A41.9 Sepsis, unspecified organism (principal); N39.0 Urinary tract infection, site not specified; M54.12 Radiculopathy, cervical region; F15.10 Other stimulant abuse, uncomplicated; J84.10 Pulmonary fibrosis, unspecified; Z88.5 Allergy status to narcotic agent
CPT/HCPCS: 36415; 70491; 71046; 71275; 72156; 74177; 80053; 81001; 82140; 82550; 83735; 84145; 84484; 85025; 87076; 87086; 87186; 93005; G0378; A9575; J0696; J2270; J3370; J7030; J7050; Q9967